=== PATIENT | male | born 1980 | race Caucasian/White ===

== ENCOUNTER 2019-09-23 18:34 | Emergency (ER) | payer OTHER ==
[2019-09-23 18:45] VITALS: BP 150/71; PULSE 97; TEMP 98.7; BMI 39.0
[2019-09-23] MEDS ORDERED: LIDOCAINE HCL 1%, 10 MG/ML (20ML VIAL) ONE (20:59)
[2019-09-23] MEDS ORDERED: KETOROLAC TROMETHAMINE 60 MG/2 ML VIAL IM ONE (21:18)
--- NOTE | 2019-09-23 21:20 | PDOC ---
Documentation entered by Jonelle Hercules SCRIBE, acting as scribe for Amadeo Eckert MD. Amadeo Eckert MD: This documentation has been prepared by the saraiibe, Jonelle Hercules SCRIBE, under my direction and personally reviewed by me in its entirety. I confirm that the documentation accurately reflects all work , treatment, procedures, and medical decision making performed by me. History of Present Illness - General Chief Complaint: Wound Stated Complaint: ABCESS LEFT AXILLA History Source: Patient Exam Limitations: No Limitations - History of Present Illness Initial Comments: 09/23/19 21:13 The patient is a 39-year-old male who presents to the emergency department with a left axillary abscess. The patient reports he has had 2 prior episodes of similar abscesses this year however, none were this painful. The patient reports the abcesses started draining while he was at the ER. Denies fever or chills. PAST MEDICAL HISTORY: no significant history PAST SURGICAL HISTORY: no significant history FAMILY HISTORY: no pertinent history SOCIAL HISTORY: Pt lives with family and is employed. MEDICATIONS: reviewed ALLERGIES: As per nursing notes Review of system: General: No fevers or chills, no weakness, no weight loss HEENT: No change in vision. No sore throat,. No ear pain CardioVascular: No chest pain or shortness of breath Respiratory:No cough, or wheezing. Gastrointestinal: no nausea, vomiting, diarrhea or constipation, No rectal bleeding Genitourinary: No dysuria, hematuria, or frequency Musculoskeletal: No joint or muscle pain or swelling Neurologic: No headache, vertigo, dizziness or loss of consciousness Psychiatric: nor depression Skin: +left axillary abscess. No rashes or easy bruising Endocrine: no increased thirst or abnormal weight change Allergic: no skin or latex allergy All other systems reviewed and normal Physical exam: GENERAL: The patient is awake, alert, and fully oriented, in no acute distress. HEAD: Normal with no signs of trauma. EYES: Pupils equal, round and reactive to light, extraocular movements intact, sclera anicteric, conjunctiva clear. EXTREMITIES: Normal range of motion, no edema. NEUROLOGICAL: Normal speech, normal gait. PSYCH: Normal mood, normal affect. SKIN: +large approximately 4x5cm abscess to the left axilla, with some purulent discharge. No ascending lymphangitis. Rest of the exam: Warm, Dry, normal turgor , no rashes or lesions noted. 09/23/19 21:18 Assessment and plan: This is a 39-year-old male who comes in complaining of a abscess to the left axilla. Procedure note incision and drainage abscess left axilla Area was anesthetized with 1% lidocaine and incised with #11 blade Moderate amount of purulent discharge was drained loculations were broken up and packing was placed Patient tolerated well. Past History - Past Medical History Allergies/Adverse Reactions: Allergies Allergy/AdvReac Type Severity Reaction Status Date / Time No Known Allergies Allergy Verified 09/23/19 18:37 Home Medications: Ambulatory Orders NK [No Known Home Medication] 09/23/19 COPD: No Other medical history: DENIES - Immunization History Td Vaccination: Yes Immunization Up to Date: Yes - Psycho Social/Smoking Cessation Hx Smoking Status: No Smoking History: Former smoker Years of Tobacco Use: 13 Have you smoked in the past 12 months: Yes Number of Cigarettes Smoked Daily: 10 If you are a former smoker, when did you quit?: 3 WEEKS AGO Cigars Per Day: 0 Information on smoking cessation initiated: No 'Breaking Loose' booklet given: 12/14/12 Hx Alcohol Use: Yes (SOCIAL) Drug/Substance Use Hx: No *Physical Exam - Vital Signs Last Vital Signs Temp Pulse Resp BP Pulse Ox 98.7 F 97 H 16 150/71 99 09/23/19 18:35 09/23/19 18:35 09/23/19 18:35 09/23/19 18:35 09/23/19 18:35 Discharge - Discharge Information Problems reviewed: Yes Clinical Impression/Diagnosis: Cutaneous abscess of left axilla Condition: Stable Disposition: HOME - Admission No - Follow up/Referral Referrals: Augusto Waters [Primary Care Provider] - - Patient Discharge Instructions Patient Printed Discharge Instructions: DI for Skin Abscess Additional Instructions: Remove the packing tomorrow night and start hot soaks as described by the physician. Do the hot soaks for 20 minutes at a time 3-4 times a day for 2 to 3 days Return to the emergency department immediately with ANY new, persistent or worsening symptoms. Continue any medications as previously prescribed by your physician. You should follow up with your primary doctor as soon as possible regarding today's emergency department visit. . Please make sure your doctor reviews the results of your emergency evaluation. Thank you for coming to the Emergency Department today for your care. It was a pleasure to see you today. Please note that your evaluation is INCOMPLETE until you follow-up with your doctor. - Post Discharge Activity
[2019-09-23] MEDS ORDERED: KETOROLAC TROMETHAMINE 60 MG/2 ML VIAL ONE (21:22)
== END 2019-09-23 21:28 | disposition home or self-care (01) ==
LOC: FER 18:34
PROC: 3E0233Z Introduction of Anti-inflammatory into Muscle, Percutaneous Approach (ICD-10-PCS; principal; 2019-09-23)
DX: L02.412 Cutaneous abscess of left axilla (principal); Z87.891 Personal history of nicotine dependence
CPT/HCPCS: 87070; 87186; 87205; 99283-25

== ENCOUNTER 2021-02-13 14:22 | Observation (INO) | payer OTHER ==
[2021-02-13 14:26] VITALS: BMI 39.7
[2021-02-13] MEDS ORDERED: ASPIRIN 81 MG CHEWABLE TABLETS PO ONE (14:34)
[2021-02-13] MEDS ORDERED: ASPIRIN 81 MG CHEWABLE TABLETS ONE (14:42)
[2021-02-13 15:01] LABS: HEMOGLOBIN 16.3 GM/dl (11.7-16.9)
[2021-02-13 15:06] LABS: BASO % 0.8 % (0-2.0); EOS % 3.4 % (0-4.5); HEMATOCRIT 47.4 % (35.4-49); INR 1.17 (0.82-1.09); LYMPH % 22.1 % (8-40); MCH 31.7 pg (25.7-33.7); MCHC 34.3 g/dl (32.0-35.9); MEAN CELL VOLUME 92.3 fl (80-96); MEAN PLT VOLUME 9.2 fl (7.5-11.1); MONO % 6.5 % (3.8-10.2); NEUT % 67.2 % (42.8-82.8); PLATELET COUNT 259 K/MM3 (134-434); RBC 5.13 M/mm3 (4.00-5.60); RDW 13.5 % (11.9-15.9); WHITE BLOOD COUNT 11.6 K/mm3 (4.0-10.8)
[2021-02-13 15:09] LABS: ALBUMIN 4.5 g/dl (3.4-5.0); BILIRUBIN,TOTAL 1.4 mg/dl (0.2-1); CALCIUM 9.5 mg/dl (8.5-10); TOT PROT 7.6 g/dl (6.4-8.2)
[2021-02-13 16:00] LABS: LIPASE 113 U/L (73-393)
[2021-02-13] MEDS ORDERED: NITROGLYCERIN 2% OINTMENT - 1GM PACKET TD ONE ×2 (17:34→17:36)
[2021-02-13] MEDS ORDERED: NITROGLYCERIN SUBLINGUAL 1/150 0.4 MG TAB SL ONE (18:15)
[2021-02-13] MEDS ORDERED: NITROGLYCERIN SUBLINGUAL 1/150 0.4 MG TAB ONE (18:16)
[2021-02-13] MEDS: INSULIN SLIDING SCALE (NOVOLOG) 1 VIAL SQ SCH (22:04)
[2021-02-14] MEDS: INSULIN SLIDING SCALE (NOVOLOG) 1 VIAL SQ SCH ×2 (07:01→12:15)
[2021-02-14 07:49] VITALS: TEMP 98
[2021-02-14 07:56] LABS: BASO % 0.5 % (0-2.0); EOS % 3.7 % (0-4.5); HEMATOCRIT 44.1 % (35.4-49); HEMOGLOBIN 15.4 GM/dl (11.7-16.9); LYMPH % 25.3 % (8-40); MCH 32.4 pg (25.7-33.7); MEAN CELL VOLUME 92.6 fl (80-96); MONO % 7.2 % (3.8-10.2); NEUT % 63.3 % (42.8-82.8); PLATELET COUNT 262 K/MM3 (134-434); RBC 4.77 M/mm3 (4.00-5.60); RDW 13.3 % (11.9-15.9)
[2021-02-14 08:09] LABS: ALBUMIN 4.1 g/dl (3.4-5.0); ALK PHOS 76 U/L (45-117); ANION GAP 9 MMOL/L (8-16); BILIRUBIN,TOTAL 1.8 mg/dl (0.2-1); CALCIUM 8.7 mg/dl (8.5-10); CHLORIDE 102 mmol/L (98-107); CHOLESTEROL 144 mg/dl (50-200); CO2 27 mmol/L (21-32); CREATININE 0.9 mg/dl (0.55-1.3); GLUCOSE,RANDOM 134 mg/dl (74-106); HDL CHOLESTEROL 23 mg/dl (40-60); LDL CHOLESTEROL (ONLY DFH) 65 mg/dl (5-100); SGOT/AST 34 U/L (15-37); SGPT/ALT 47 U/L (13-61); SODIUM 138 mmol/L (136-145); TOT PROT 6.9 g/dl (6.4-8.2); TRIGLYCERIDES 279 mg/dl (0-150)
[2021-02-14] MEDS: ASPIRIN 81 MG CHEWABLE TABLETS PO SCH ×2 (08:35→09:13)
[2021-02-14 15:53] VITALS: BP 143/75; PULSE 78
== END 2021-02-14 15:58 | disposition home or self-care (01) ==
LOC: FER 14:22 → FM/S 17:24
PROVIDERS: ADMIT Internal Medicine; ATTEND Nurse Practitioner Acute Care
DX: R07.9 Chest pain, unspecified (principal); E11.9 Type 2 diabetes mellitus without complications; E78.5 Hyperlipidemia, unspecified; E66.01 Morbid (severe) obesity due to excess calories; Z68.41 Body mass index [BMI] 40.0-44.9, adult; Z86.16 Personal history of COVID-19; Z79.84 Long term (current) use of oral hypoglycemic drugs; F17.290 Nicotine dependence, other tobacco product, uncomplicated
CPT/HCPCS: 36415; 71045-TC-FY; 78452-TC; 80053; 80061; 82550; 82553; 82962; 83690; 84484; 85025; 85610; 93005; 93017; 93306-TC; 99285-25; A9502; C9803; G0378; U0003; U0005

== ENCOUNTER 2021-09-19 09:17 | Emergency (ER) | payer OTHER ==
[2021-09-19 09:35] VITALS: BP 124/90; PULSE 88; TEMP 98.7; BMI 41.8
[2021-09-19 10:53] LABS: ALBUMIN 3.9 g/dl (3.4-5.0); BILIRUBIN,TOTAL 1.2 mg/dl (0.2-1); CALCIUM 8.8 mg/dl (8.5-10); CREATININE 0.8 mg/dl (0.55-1.3); TOT PROT 6.8 g/dl (6.4-8.2)
[2021-09-19 10:55] LABS: EPITHELIAL CELLS RARE /hpf
[2021-09-19 11:31] LABS: BASO % 0.7 % (0-2.0); EOS % 3.6 % (0-4.5); HEMATOCRIT 41.8 % (35.4-49); HEMOGLOBIN 14.3 GM/dL (11.7-16.9); LYMPH % 20.3 % (8-40); MCHC 34.3 g/dl (32.0-35.9); MEAN CELL VOLUME 90.3 fl (80-96); MEAN PLT VOLUME 8.7 fl (7.5-11.1); MONO % 7.9 % (3.8-10.2); NEUT % 67.5 % (42.8-82.8); PLATELET COUNT 229 10^3/uL (134-434); RBC 4.62 M/mm3 (4.00-5.60); WHITE BLOOD COUNT 9.1 K/mm3 (4.0-10.0)
== END 2021-09-19 11:47 | disposition home or self-care (01) ==
LOC: FER 09:17
DX: J18.9 Pneumonia, unspecified organism (principal)
CPT/HCPCS: 36415; 71046-TC-FY; 80053; 81003; 81015; 84484; 85025; 87086; 93005; 99285-25